=== PATIENT | female | born 1985 | race American Indian/Alaskan Native ===

== ENCOUNTER 2016-12-16 17:27 | Emergency (ER) | payer OTHER ==
[2016-12-16 17:42] VITALS: TEMP 98.2; O2SAT 100
--- NOTE | 2016-12-16 18:05 | ED PDOC ---
Arrival/HPI - General Historian: Patient - History of Present Illness Time/Duration: Other (see hpi) Context: Home <Fam Jim P - Last Filed: 12/16/16 18:38> <Beau Robertson - Last Filed: 12/16/16 22:47> - General Chief Complaint: Lower Extremity Problem/Injury Time Seen by Provider: 12/16/16 17:44 - History of Present Illness Narrative History of Present Illness (Text): 12/16/16 18:02 This 31 yo female presents to this ED c/o right posterior ankle, and right lateral ankle pain x 2-1/2 months. [place] causing an acute right ankle pain. Patient was seen at [facility] [place], who ordered ankle x-rays. Patient stated ankle x-ray was negative. Patient denies other complains. (Fam Jim) Past Medical History - Provider Review Nursing Documentation Reviewed: Yes - Travel History If Yes, travel location?: [place] - Psychiatric Hx Substance Use: No <Fam Jim P - Last Filed: 12/16/16 18:38> Family/Social History - Physician Review Nursing Documentation Reviewed: Yes Family/Social History: Other (noncontributory) Smoking Status: Never Smoked Hx Alcohol Use: No Hx Substance Use: No <Fam Jim P - Last Filed: 12/16/16 18:38> Allergies/Home Meds <Fam Jim P - Last Filed: 12/16/16 18:38> <Beau Robertson - Last Filed: 12/16/16 22:47> Allergies/Adverse Reactions: Allergies peanut Allergy (Verified 12/16/16 17:42) ANAPHYLAXIS Review of Systems - Review of Systems Constitutional: Normal. absent: Fatigue, Weight Change, Fevers Eyes: Normal. absent: Vision Changes ENT: Normal Respiratory: Normal. absent: SOB Cardiovascular: Normal. absent: Chest Pain, Palpitations Gastrointestinal: Normal. absent: Abdominal Pain, Nausea, Food Intolerance Genitourinary Female: Normal. absent: Hematuria Musculoskeletal: Other (right ankle pain) Skin: Normal. absent: Rash Neurological: Normal. absent: Headache, Dizziness, Focal Weakness Endocrine: Normal Hemo/Lymphatic: Normal Psychiatric: Normal <Fam Jim P - Last Filed: 12/16/16 18:38> Physical Exam Temperature: Afebrile Blood Pressure: Normal Pulse: Regular Respiratory Rate: Normal Appearance: Positive for: Well-Appearing, Non-Toxic, Comfortable Pain Distress: None Mental Status: Positive for: Alert and Oriented X 3 - Systems Exam Head: Present: Atraumatic, Normocephalic Pupils: Present: PERRL Extroacular Muscles: Present: EOMI Conjunctiva: Present: Normal Mouth: Present: Moist Mucous Membranes Neck: Present: Normal Range of Motion Back: Present: Normal Inspection. No: CVA Tenderness Upper Extremity: Present: Normal Inspection, Normal ROM, NORMAL PULSES, Neurovascularly Intact, Capillary Refill < 2s. No: Cyanosis, Edema Lower Extremity: Present: Normal Inspection, NORMAL PULSES, Normal ROM, Neurovascularly Intact, Capillary Refill < 2 s, Other (Ulloa test is negative. Mild right posterior ankle tenderness. ). No: Edema, CALF TENDERNESS, Tenderness, Erythema, Deformity, Temperature Abnormalties Neurological: Present: GCS=15, CN II-XII Intact, Speech Normal, Motor Func Grossly Intact, Normal Sensory Function, Normal Cerebellar Funct, Memory Normal Skin: Present: Warm, Dry, Normal Color. No: Rashes Psychiatric: Present: Alert, Oriented x 3, Normal Insight, Normal Concentration <Fam Jim - Last Filed: 12/16/16 18:38> Vital Signs Temp Pulse Resp BP Pulse Ox 12/16/16 18:50 71 18 128/73 100 12/16/16 17:38 98.2 F 60 16 129/73 100 Medical Decision Making Re-evaluation Time: 18:18 Reassessment Condition: Re-examined, Improved <Fam Jim - Last Filed: 12/16/16 18:38> <Beau Robertson - Last Filed: 12/16/16 22:47> ED Course and Treatment: 12/16/16 18:17 Patient refused to have ankle x-rays, since she had it done x 2 months ago, which were negative. Patient stated she will moss picker films form [facility] [place] before f/ u orthopedist. Patient was advised to f/u orthopedist, she may need to have MRI of ankle if pain persist. (Fam Jim) - Medication Orders Current Medication Orders: Discontinued Medications Ketorolac Tromethamine (Toradol) 30 mg IM STAT STA Stop: 12/16/16 18:17 Last Admin: 12/16/16 18:46 Dose: 30 mg MAR Pain Assessment Document 12/16/16 18:46 EQ (Rec: 12/16/16 18:46 EQ [facility]) Pain Reassessment Is this a pain reassessment? No Sleep Is patient sleeping during reassessment? No Presence of Pain Presence of Pain Yes IM Administration Charges Document 12/16/16 18:46 EQ (Rec: 12/16/16 18:46 EQ [facility]) Charges for Administration # of IM Administrations 1 - PA / INFECTIOUS WASTE TECHNICIAN / Resident Statement MD/ has reviewed & agrees with the documentation as recorded. <Beau Robertson - Last Filed: 12/16/16 22:47> Disposition/Present on Arrival - Present on Arrival Any Indicators Present on Arrival: No History of DVT/PE: No History of Uncontrolled Diabetes: No Urinary Catheter: No History of Decub. Ulcer: No History Surgical Site Infection Following: None - Disposition Have Diagnosis and Disposition been Completed?: Yes Disposition Time: 18:19 Patient Plan: Discharge <Fam Jim - Last Filed: 12/16/16 18:38> <Beau Robertson - Last Filed: 12/16/16 22:47> - Disposition Diagnosis: Ankle pain, right Disposition: HOME/ ROUTINE Condition: GOOD Discharge Instructions (ExitCare): Ankle Sprain (ED), Crutch Instructions (ED) Additional Instructions: Call private doctor for follow up visit in 1-2 days. Take medication as instructed with food. Use crutches, and brenton bandage till pain improves. You may need to have an MRI of ankle if pain persist. remove brenton bandage at bedtime. Return to emergency if pain persist. Prescriptions: Famotidine [Pepcid] 40 mg PO DAILY #10 tablet Naproxen 500 mg PO BID PRN #14 tab PRN Reason: Pain, Severe (8-10) Referrals: Compa New MD [Staff Provider] - Follow up with primary Forms: [employer] ([place]), WORK NOTE
[2016-12-16 18:56] VITALS: BP 128/73; PULSE 71; RESP 18
== END 2016-12-16 18:55 | disposition home or self-care (01) ==
LOC: ED 17:27
DX: M25.571 Pain in right ankle and joints of right foot (principal)
CPT/HCPCS: 81025; 96372; 99284; J1885